=== PATIENT | female | born 1980 | race Caucasian/White ===

== ENCOUNTER 2016-08-25 12:47 | Emergency (ER) | payer OTHER ==
[~2016-08-25] VITALS: Ht 152.4 cm; Wt 73.2 kg
[~2016-08-25 12:47] MED LIST: CALCIUM CARBONATE PO; CHOL40003 PO; FERROUS SULFATE PO; IBUP200T48 PO; OMEP-113 PO; OXYC-284 PO; RANI150T13 PO; RIZA10TA23 PO; [UNRECOGNIZED DRUG - CODE] PO
[2016-08-25 12:58] VITALS: BP 123/95; PULSE 110; RESP 14; O2SAT 98
--- NOTE | 2016-08-25 15:08 | ED.REPORT ---
HPI-General Illness Date of Service Aug 25, 2016 ED Provider: Rigoberto Jackson MD Pt is a 36 y.o. female with a hx of migraines who presents to the ED c/o nausea and vomiting onset yesterday. Associated nasal congestion, fever, chills, myalgias, vomiting, headache, dizziness, lightheadedness, and decreased PO intake. She denies any urinary symptoms. Pt states that she has been taking ondansetron for her nausea and vomiting with no relief. Pt currently takes candesartan for her migraines. Pt states last menses was 08/13/17. Nursing Notes Stated Complaint: NAUSEA Chief Complaint: FLU/Cold Symptoms Nursing Notes Reviewed: Yes Allergies: Coded Allergies: aspirin (Verified Allergy, Intermediate, STOMACH PAINS, 12/26/13) caffeine (Verified Allergy, Intermediate, STOMACH PAINS, 12/26/13) citalopram (Verified Allergy, Intermediate, TREMORS, 12/26/13) gabapentin (Verified Allergy, Intermediate, VISION CHANGES, 12/26/13) hydrocodone (Verified Adverse Reaction, Severe, N&V (tolerates percocet), 03/13/13) pramipexole (Verified Adverse Reaction, Severe, N&V, 03/13/13) Uncoded Allergies: EXCEDRIN (Adverse Reaction, Severe, stomach pains, 03/11/13) Scheduled ([Calcium Carbonate]) 750 MG PO DAILY ([Ferrous Sulfate]) 54 MG PO DAILY Cholecalciferol (Vitamin D3) (Vitamin D3) 4,000 Unit Capsule 4,000 UNIT PO DAILY Ibuprofen (Ibuprofen) 200 Mg Tablet 200 MG PO Q6 Omeprazole Magnesium (Omeprazole) 20 Mg Capsule.dr 20 MG PO HS Ranitidine HCl (Zantac) 150 Mg Tablet 150 MG PO DAILY Scheduled PRN Metoclopramide (Reglan) 5 Mg Tablet 5 MG PO QID PRN PRN For Nausea Oxycodone HCl/Acetaminophen 5-325 (Percocet 5-325) 1 Each Tablet 0.5 EACH PO PRN PRN PRN For Pain Miscellaneous Medications Calcium Polycarbophil (Fiber Tabs) 625 Mg Tablet 625 MG PO Rizatriptan ODT (Maxalt [employer]) 10 Mg Tab.rapdis 10 MG PO TAKE 10MG BY MOUTH AT ONSET OF MIGAINE, MAY REPEAT IN 2 HOURS, MAX OF 3 TABLETS PER DAY. General Time Seen by MD: 15:07 Chief Complaint Vomiting Hx Obtained From: Patient Arrived By: Walk-in Sudden in Onset?: Yes Onset Occurred: Yesterday Symptom Duration: Since onset Location: : Head Quality: Painful Severity: Current: Moderate Past Medical History Past Medical History Reports: Migraines Past Surgical History None reported Social History Alcohol Use: "Social" Ambulatory Status Independent Review of Systems Decreased PO intake Full Review of Systems Constitutional: Reports: Chills, Fever Ears / Nose / Throat: Reports: Nasal congestion GI: Reports: Diarrhea, Nausea, Vomiting Female: Denies: Dysuria, Urinary frequency, Urinary urgency, Urination decreased, Urination increased Musculoskeletal: Reports: Myalgia Neurologic: Reports: Dizziness, Headache, Lightheaded Complete sys rev & neg: except as marked. Physical Exam Vital Signs Vital Signs Date Time Temp Pulse Resp B/P Pulse Ox O2 Delivery O2 Flow Rate FiO2 08/25/16 19:24 36.5 117 20 107/80 98 Room Air 08/25/16 17:45 93 20 100/63 08/25/16 12:58 36.3 110 14 123/95 98 Initial VS: Reviewed Head / Eyes: Atraumatic, Normocephalic Extremities: Vascular intact, Neuro intact Skin: Warm, Dry, No cyanosis Neurologic: Alert, Oriented, Nonfocal Psychiatric: Mood/affect normal, Behavior normal, Normal thought content General/Constitutional: Awake, Alert, No acute distress, Well appearing, Well developed, Well nourished, Not toxic appearing ENT: Atraumatic, Airway patent Mouth: Positive: Mucous membranes dry Respiratory / Chest: Atraumatic, Breath sounds NL, Breath sounds = bilat, No respiratory distress, No rales, No rhonchi, No wheezing, No retractions, No stridor Cardiovascular: Heart rate NL, Regular rhythm, Heart sounds NL, No gallop, No murmurs, Cap refill not delayed, Peripheral circulation NL No lower extremity edema Abdomen: Atraumatic, Soft, Non-tender, No guarding, No rebound, No distention Interpretation & Diagnostics Lab Results Interpretation Test 08/25/16 18:00 Hold Urine Received (Received) Re-Eval/Medical Decision Med Decision/Clinical Course Pt is a 36 y.o. female with a hx of migraines who presents to the ED c/o nausea and vomiting onset yesterday. Associated nasal congestion, fever, chills, myalgias, vomiting, headache, dizziness, lightheadedness, and decreased PO intake. On arrival the patient is tachycardic with a heart rate of 110 and appears somewhat dehydrated though nontoxic in appearance. She is hemodynamically stable. Influenza testing was negative. She was treated with the below medications: 2L normal saline 30mg IV Toradol 8mg IV Zofran Thereafter, she was reevaluated and reported significant symptom improvement. She was able to tolerate oral fluids. Serial abdominal examinations were benign. Auscultation of the lungs was reassuring against bacterial pneumonia. There is no evidence of acute surgical intervention on process. Urine dip was negative for signs of UTI and was negative. Her overall presentation is most consistent with a flulike illness. At this time, I feel she is appropriate for discharge home and outpatient management. She was prescribed Reglan for nausea and will continue to orally hydrate. Follow up in her precautions were reviewed in detail she was discharged in good condition. Source of Hx: Old records Time of Eval: 16:19 Re-Evaluation/Progress Note: Pt rechecked. Pt states that she currently has chills. Time of Eval: 17:45 Re-Evaluation/Progress Note: Pt rechecked. Pt is still nauseated and has a headache. Will administer Reglan. Counseled Regarding: Diagnosis, Lab results, Need for follow-up, When/why to return to ED Discharge & Departure Primary Impression: Flu-like symptoms Additional Impressions: Nausea and vomiting Vomiting type: unspecified Vomiting Intractability: unspecified Qualified Code: R11.2 - Nausea with vomiting, unspecified Myalgia Tachycardia Dehydration Disposition: Home Discharge Condition All VS Reviewed: Yes Condition: Stable Additional Instructions: Thank you for seeking care at emergency room. It is difficult for us to make definitive diagnoses in the ED but we believe that you are experiencing a flulike illness. Our primary goal today in the ED was to evaluate you for any life-threatening conditions. Your evaluation was reassuring. Plenty of fluids, take Zofran for nausea and ibuprofen for aches/pains. You should follow-up with your primary doctor in the next week. You should return to the ED immediately if you develop worsening symptoms, inability to keep down fluids, fevers, vomiting, cough, shortness of breath, chest pain, lightheadedness, weakness or any other concerning signs or symptoms. Thank you for letting us partake in your care today. Referrals: Fay Espinosa (PCP) Brian Attestation Portions of this note were transcribed by Suzanne Lomeli. I, Dr. Jackson personally performed the history, physical exam and medical decision-making; I reviewed and confirmed the accuracy of the information in the transcribed note. Signed by: Brian Espinoza, 08/25/2016 and 1748. copies to: Fay Espinosa Beck O MD Aug 25, 2016 15:08 SUZANNE LOMELI Aug 25, 2016 15:14
[2016-08-25] MEDS ORDERED: Ondansetron 2 mg/mL 2 mL Inj IVPUSH ONE (15:35)
[2016-08-25] MEDS ORDERED: 0.9% Sodium Chloride 1,000 ML IV ONE ×3 (15:35→17:50)
[2016-08-25] MEDS ORDERED: METO5TAB78 PO (15:39)
[2016-08-25 17:45] VITALS: BP 100/63; PULSE 93; RESP 20
[2016-08-25] MEDS ORDERED: MetoCLOpramide 5 mg/mL 2 mL Inj IVPUSH PRN (17:50)
[2016-08-25 19:24] VITALS: BP 107/80; PULSE 117; RESP 20; O2SAT 98
== END 2016-08-25 19:26 | disposition home or self-care (01) ==
LOC: SED 12:47
DX: J11.1 Influenza due to unidentified influenza virus with other respiratory manifestations (principal); R11.2 Nausea with vomiting, unspecified; R00.0 Tachycardia, unspecified; Z88.5 Allergy status to narcotic agent; Z88.8 Allergy status to other drugs, medicaments and biological substances; Z91.018 Allergy to other foods
CPT/HCPCS: 81025; 87804; 96361; 96374; 96375; 99284; J2405; J2765; J7030